=== PATIENT | female | born 1990 | race African-American/Black ===

== ENCOUNTER 2018-05-02 10:39 | Emergency (ER) | payer OTHER ==
[~2018-05-02] VITALS: Ht 175.3 cm; Wt 70.3 kg
[2018-05-02] MEDS ORDERED: PENICILLIN V P500 MG PO (12:09)
[2018-05-02] MEDS ORDERED: NORCO 5-325 TA1 EACH PO (12:09)
[2018-05-02] MEDS ORDERED: MOBIC7.5 MG PO (12:09)
[2018-05-02 12:53] VITALS: BP 115/71
== END 2018-05-02 12:20 | disposition home or self-care (01) ==
LOC: ER 10:39
DX: K05.10 Chronic gingivitis, plaque induced (principal)